=== PATIENT | female | born 1985 | race African-American/Black ===

== ENCOUNTER 2023-08-07 18:28 | Emergency (ER) | payer OTHER, SELFPAY ==
[2023-08-07] MEDS ORDERED: Boostrix 0.5 ML (Tdap) VIAL (>/=7 yrs of age) ONE (18:43)
[2023-08-07] MEDS ORDERED: Ketorolac Tromethamine 30 MG/ML VIAL ONE (18:57)
[2023-08-07] MEDS ORDERED: Acetaminophen 500 MG TAB ONE (18:58)
[2023-08-07 19:02] LABS: #Monocytes 0.7 thou/uL (0.11-0.59); #Neutrophils 4.3 thou/uL (1.40-6.50); %Basophils 0.6 % (0.0-1.0); %Eosinophils 0.6 % (0.0-10.0); %Lymphocytes 27.7 % (21.0-51.0); %Monocytes 10.1 % (0.0-10.0); %Neutrophils 60.6 % (42.0-75.0); Hemoglobin 8.1 g/dL (12.0-16.0); Mean Corpuscular HGB CONC 27.9 g/dL (32.0-36.0); Mean Corpuscular Hemoglobin 19.1 pg (27.0-31.0); Mean Corpuscular Volume 68.4 fl (78.0-98.0); Platelet Count 238 10x3/uL (130-400); RBC Distribution Width 17.1 % (11.5-14.5); Red Blood Cell (RBC) Count 4.24 mill/uL (4.20-5.40); White Blood Cell (WBC) Count 7.1 10x3/uL (4.8-10.8)
[2023-08-07 19:11] LABS: BHCG - Serum Negative (NEGATIVE); Pregs Control Background? CLEAR/WHITE (CLR/WHITE); Pregs Control Bar Appear? YES (CONTROL BAR)
[2023-08-07 19:26] LABS: ALT (SGPT) 16 U/L (8-55); AST (SGOT) 18 U/L (5-34); Alkaline Phosphatase 89 U/L (40-110); Anion Gap 13 mmol/L (10-20); BUN (Urea Nitrogen) 10 mg/dL (7.0-18.7); Bilirubin, Total 0.3 mg/dL (0.2-1.2); Calc. Creatinine Clearance 0 mL/min (70-130); Calcium 8.9 mg/dL (7.8-10.44); Carbon Dioxide 19 mmol/L (22-29); Chloride 109 mmol/L (98-107); Estimated GFR 62; Globulin 3.8 g/dL (2.4-3.5); Glucose 115 mg/dL (70-105); Lipase 53 U/L (8-78); Potassium 3.3 mmol/L (3.5-5.1); Protein, Total 7.8 g/dL (6.0-8.3); Sodium 138 mmol/L (136-145)
[2023-08-07 19:44] LABS: Anisocytosis SLIGHT = 6-15 cells HPF (0-5); CellaVision Operator ID LAB.KB; Hypochromia SLIGHT = 6-15 cells HPF (0-5); Microcytosis SLIGHT = 6-15 cells HPF (0-5); Ovalocytes SLIGHT = 2-5 cells HPF (0-1); Platelet Adequacy Comment Platelets Normal
[2023-08-07] MEDS ORDERED: Lidocaine 1% w/Epinephrine 1:100K 20 ML VIAL ONE (20:49)
== END 2023-08-07 21:41 | disposition home or self-care (01) ==
LOC: ERS 18:28
DX: S91.312A Laceration without foreign body, left foot, initial encounter (principal); S39.92XA Unspecified injury of lower back, initial encounter; I10 Essential (primary) hypertension; D64.9 Anemia, unspecified; N20.0 Calculus of kidney; E03.9 Hypothyroidism, unspecified; Z23 Encounter for immunization; V89.2XXA Person injured in unspecified motor-vehicle accident, traffic, initial encounter
CPT/HCPCS: 12001; 36415; 71045; 72128; 72131; 80053; 83690; 84443; 84703; 85025; 90471; 90715; 96361; 96374; J1885

== ENCOUNTER 2023-08-10 09:51 | Emergency (ER) | payer SELFPAY | END 2023-08-10 11:01 | disposition home or self-care (01) | LOC: ERS 09:51 | DX: M25.511 Pain in right shoulder (principal); I10 Essential (primary) hypertension | CPT/HCPCS: 93005 ==